=== PATIENT | female | born 1970 | race Caucasian/White ===

== ENCOUNTER 2016-08-14 17:38 | Emergency (ER) | payer MEDICAID ==
[~2016-08-14] VITALS: Wt 65.0 kg
[~2016-08-14 17:38] MED LIST: ALBU8.5H3 INH; ALBU8.5H5 IH; AUG875 PO; AZIT500T2 PO; IBUP400T22 PO; LORA-441 PO; LORA10CA PO; NITR-58 PO; PRED20TA PO
[2016-08-14] MEDS ORDERED: ALBUTEROL 0.083% (NEB) 2.5 MG/3 ML AMP HHN STA (18:07)
[2016-08-14] MEDS ORDERED: DEXAMETHASONE 10 MG/ML 1 ML INJ IM ONE (18:30)
[2016-08-14] MEDS ORDERED: IPRATROPIUM (NEB) 0.5 MG/2.5 ML AMP HHN ONE (18:30)
--- NOTE | 2016-08-14 19:09 | RADRPT ---
PROCEDURE: XR Chest. CLINICAL INDICATION: Shortness of breath. TECHNIQUE: Single frontal view. COMPARISON: 11/29/2015. FINDINGS: The lungs are clear. The heart size is normal. There is no pleural effusion. There is no pneumothorax. IMPRESSION: 1. Normal chest radiograph. RPTAT: QQ .Mayo Shepherd MD, MD Date Time Electronically viewed and signed by .Mayo Shepherd MD, MD on 08/14/2016 19:09 .R/
--- NOTE | 2016-08-14 19:11 | RADRPT ---
PROCEDURE: XR Thoracic Spine. CLINICAL INDICATION: Trauma. Back pain. TECHNIQUE: 3 views. Frontal, lateral, and lateral swimmers view. COMPARISON: None available FINDINGS: There is normal stature and alignment of the vertebrae. There is no fracture. There is no lytic or blastic lesion. The disk height is normal. The paravertebral soft tissues are unremarkable. Surgical clips are present in the right upper quad rant of the abdomen.. IMPRESSION: 1. Prior right upper quadrant abdomen surgery. 2. Otherwise unremarkable images of the thoracic spine. RPTAT: QQ .Mayo Shepherd MD, MD Date Time Electronically viewed and signed by .Mayo Shepherd MD, on 08/14/2016 19:11 .R/
[2016-08-14] MEDS ORDERED: PRED20TA PO (20:11)
[2016-08-14] MEDS ORDERED: ALBU8.5H3 INH (20:11)
--- NOTE | 2016-08-14 20:27 | ERD ---
ER Documentation Chief Complaint Date/Time DATE: 08/14/16 TIME: 20:21 Chief Complaint back pain, sob, anxious HPI This is a 46-year-old female presents to the ER presenting with shortness of breath that started yesterday. Over the last 2 days patient has had severe allergies with runny nose and sneezing. Patient states that it is difficult for her to take a deep breath in. Shortness of breath is present whenever she is walking or sitting down. She does admit to some chest pain. She also complains of upper back pain. She denies any trauma. She denies any recent travel, leg swelling or redness, recent surgery. Patient denies any fevers or chills. She does not have a family history of heart attacks or heart conditions at an early age. Patient states that her primary care doctor told her that this was anxiety. ROS 12 point review of systems was done, all negative except per HPI. Medications Home Meds Active Scripts Prednisone* (Prednisone*) 20 Mg Tab, 40 MG PO DAILY for 5 Days, TAB Prov:ARLETH CEE 08/14/16 Albuterol Sulfate* (Proair HFA*) 8.5 Gm Hfa.aer.ad, 2 PUFF INH Q4, #1 INHALER Prov:ARLETH CEE 08/14/16 Albuterol Sulfate* (Proair HFA*) 8.5 Gm Hfa.aer.ad, 2 PUFF INH Q4, #1 INHALER Prov:MCKINLEY JOINER PA-C 11/29/15 Nitrofurantoin Monohyd Macrocr* (Macrobid*) 100 Mg Capsr, 100 MG PO BID for 5 Days, CAP Prov:LANDON RUIZ NP 12/14/14 Prednisone* (Prednisone*) 20 Mg Tab, 60 MG PO DAILY for 5 Days Prov:MACIEL BURCH DO 11/08/14 Azithromycin* (Zithromax* Tri-Arnulfo) 500 Mg Tablet, 500 MG PO DAILY for 3 Days, TAB Prov:MACIEL BURCH DO 11/08/14 Albuterol Sulfate* (Albuterol Sulfate* HFA) 8.5 Gm Hfa.aer.ad, 2 PUFFS IH Q6 for WHEEZING, #2 EA Prov:MACIEL BURCH DO 11/08/14 Lorazepam* (Ativan*) 0.5 Mg Tablet, 0.5 MG PO Q8 Y for ANXIETY, #10 TAB Prov:MACIEL BURCH DO 11/08/14 Loratadine* (Claritin*) 10 Mg Capsule, 10 MG PO DAILY, #30 CAP Prov:BRENDAN PONCE STATION INSPECTOR 10/14/14 Albuterol Sulfate* (Albuterol Sulfate* HFA) 8.5 Gm Hfa.aer.ad, 2 PUFF IH Q4H Y for WHEEZING AND SOB, #1 EA Prov:BRENDAN PONCE STATION INSPECTOR 10/14/14 Reported Medications Amoxicillin-Clavulanate K* (Augmentin*) 875 Mg Tab, 875 MG PO BID, TAB 11/08/14 Ibuprofen* (Motrin*) 400 Mg Tab, 400 MG PO QID, TAB 11/08/14 Allergies Allergies: Coded Allergies: No Known Drug Allergy (Verified Allergy, Unknown, 11/08/14) PMhx/Soc History of Surgery: Yes ( X3 ) Anesthesia Reaction: No Hx Neurological Disorder: No Hx Respiratory Disorders: Yes (Asthma) Hx Cardiac Disorders: No Hx Psychiatric Problems: No Hx Miscellaneous Medical Probl: No Hx Alcohol Use: No Hx Substance Use: No Hx Tobacco Use: No Smoking Status: Never smoker Physical Exam Vitals Vital Signs Date Time Temp Pulse Resp B/P Pulse Ox O2 Delivery O2 Flow Rate FiO2 08/14/16 19:00 73 20 97 21 08/14/16 17:41 98.1 90 20 150/90 99 Physical Exam GENERAL: The patient is well developed and appropriate for usual state of health , in no apparent distress. HEENT: Atraumatic. Conjunctivae are pink. Pupils equal, round, and reactive to light. Extraocular muscles are grossly intact. Bilateral tympanic membranes are clear with no evidence of erythema, effusion or dulling of the light reflex. The oropharynx is clear with no erythema or exudates. CHEST: Expiratory wheezing in all lung arango. No rales crackles or rhonchi. HEART: Regular rate and rhythm. No murmurs, clicks, rubs or gallops. ABDOMEN: Soft, nontender and nondistended. Good bowel sounds. No rebound or guarding. No gross peritonitis. No gross organomegaly or masses. No Brannon sign or McBurney point tenderness. No pulsatile masses. BACK: No midline or flank tenderness. NEURO: Alert and oriented. SKIN: There is no apparent rash or petechia. The skin is warm and dry. Results 24 hrs Current Medications Medications (Trade) Dose Ordered Sig/Tara Route PRN Reason Start Time Stop Time Status Last Admin Dose Admin Albuterol (Proventil 0.083% (Neb)) 10 mg ONCE STAT HHN 08/14/16 18:07 08/14/16 18:10 DC 08/14/16 18:55 Ipratropium [place] (Atrovent 0.02% (Neb)) 0.5 mg ONCE ONCE HHN 08/14/16 18:30 08/14/16 18:31 DC 08/14/16 18:55 Dexamethasone (Decadron) 10 mg ONCE ONCE IM 08/14/16 18:30 08/14/16 18:31 DC 08/14/16 18:32 Procedures/MDM Differential diagnosis includes but is not limited to; STEMI, dissection, pneumothorax, PE, esophageal rupture, tamponade, pneumonia, pericarditis, GERD, musculoskeletal, endocarditis, anxiety, asthma. This is a 46-year-old female presents to the ER for shortness of breath. Patient did have significant wheezing on physical examination. Patient has a past medical history of allergic rhinitis. This is likely related. Patient states that over the last 2 days her allergies have been very bad. Was given an hour-long nebulizer treatment and that her shortness of breath was gone after the treatment. Upon reexamination her lungs and was includes. An EKG was done read by 75bpm no ST elevation or t wave inversions. Suspicion for pulmonary embolism is low, patient does not have any PERC criteria. Patient is afebrile and well- appearing. She is not hypoxic or in any respiratory distress. In regards to The patient's back pain is likely muscular in nature there is no evidence of fracture dislocation. Patient will be sent home with prednisone and with an albuterol inhaler. She was told to follow-up with her primary care doctor and to get tested for asthma. She was also told to get allergy testing and to see a specialist. Patient to return to ER sooner if symptoms worsen. My medical decision making shared with the patient she understands and agrees with plan. Departure Diagnosis: Primary Impression: Wheezing Condition: Stable Patient Instructions: Asthma Additional Instructions: Llame al doctor MAANA y thelma edgar ROBBIE PARA DENTRO DE 1-2 DANIEL.Dgale a la secretaria que nosotros le instruimos hacer esta robbie.Avise o llame si jackson condicin se empeora antes de la robbie. Regresa aqui si peor o no mejor. ARLETH CEE Aug 14, 2016 20:27
[2016-08-14 20:43] VITALS: BP 129/80; PULSE 99; RESP 16
== END 2016-08-14 20:44 | disposition home or self-care (01) ==
LOC: FTE 17:38
DX: J45.901 Unspecified asthma with (acute) exacerbation (principal); M54.9 Dorsalgia, unspecified; F41.9 Anxiety disorder, unspecified
CPT/HCPCS: 71010; 72072; 93005; 94644; 96372; J1100; Z7502; Z7610

== ENCOUNTER 2016-08-31 13:00 | Emergency (ER) | payer MEDICAID ==
[~2016-08-31] VITALS: Wt 67.0 kg
[2016-08-31] MEDS ORDERED: IBUP-1542 PO (13:25)
--- NOTE | 2016-08-31 13:29 | ERD ---
ER Documentation Chief Complaint Date/Time DATE: 08/31/16 TIME: 13:26 Chief Complaint PT HIT IN HEAD BY SOMTHING METAL, DENIES LOC HPI This patient is a 46-year-old female who states that early this morning she was working cleaning her house when a metal object fell onto her head. She did not lose consciousness. She has not had any nausea or vomiting. She denies any visual changes, photosensitivity, blurry, or double vision. She denies any dizziness. She states only has pain. Her pain was worse this morning but now states it is getting better and currently rates it as a throbbing nonradiating 5 out of 10. She has no neck pain. ROS All systems reviewed and are negative except as per history of present illness. Medications Home Meds Active Scripts Ibuprofen* (Motrin*) 600 Mg Tab, 600 MG PO Q6, #30 TAB Prov:MCKINLEY JOINER PA-C 08/31/16 Prednisone* (Prednisone*) 20 Mg Tab, 40 MG PO DAILY for 5 Days, TAB Prov:ARLETH CEE 08/14/16 Albuterol Sulfate* (Proair HFA*) 8.5 Gm Hfa.aer.ad, 2 PUFF INH Q4, #1 INHALER Prov:ARLETH CEE 08/14/16 Albuterol Sulfate* (Proair HFA*) 8.5 Gm Hfa.aer.ad, 2 PUFF INH Q4, #1 INHALER Prov:MCKINLEY JOINER PA-C 11/29/15 Nitrofurantoin Monohyd Macrocr* (Macrobid*) 100 Mg Capsr, 100 MG PO BID for 5 Days, CAP Prov:LANDON RUIZ [employer] PRESS OPERATOR 12/14/14 Prednisone* (Prednisone*) 20 Mg Tab, 60 MG PO DAILY for 5 Days Prov:MACIEL BURCH DO 11/08/14 Azithromycin* (Zithromax* Tri-Arnulfo) 500 Mg Tablet, 500 MG PO DAILY for 3 Days, TAB Prov:MACIEL BURCH DO 11/08/14 Albuterol Sulfate* (Albuterol Sulfate* HFA) 8.5 Gm Hfa.aer.ad, 2 PUFFS IH Q6 for WHEEZING, #2 EA Prov:MACIEL BURCH DO 11/08/14 Lorazepam* (Ativan*) 0.5 Mg Tablet, 0.5 MG PO Q8 Y for ANXIETY, #10 TAB Prov:MACIEL BURCH DO 11/08/14 Loratadine* (Claritin*) 10 Mg Capsule, 10 MG PO DAILY, #30 CAP Prov:BRENDAN PONCE H[employer] PRESS OPERATOR 10/14/14 Albuterol Sulfate* (Albuterol Sulfate* HFA) 8.5 Gm Hfa.aer.ad, 2 PUFF IH Q4H Y for WHEEZING AND SOB, #1 EA Prov:BRENDAN PONCE H[employer]ATE [employer] PRESS OPERATOR 10/14/14 Reported Medications Amoxicillin-Clavulanate K* (Augmentin*) 875 Mg Tab, 875 MG PO BID, TAB 11/08/14 Ibuprofen* (Motrin*) 400 Mg Tab, 400 MG PO QID, TAB 11/08/14 Allergies Allergies: Coded Allergies: No Known Drug Allergy (Verified Allergy, Unknown, 11/08/14) PMhx/Soc History of Surgery: Yes ( X3 ) Anesthesia Reaction: No Hx Neurological Disorder: No Hx Respiratory Disorders: Yes (Asthma) Hx Cardiac Disorders: No Hx Psychiatric Problems: No Hx Miscellaneous Medical Probl: No Hx Alcohol Use: No Hx Substance Use: No Hx Tobacco Use: No FmHx Family History: No diabetes Physical Exam Vitals Vital Signs Date Time Temp Pulse Resp B/P Pulse Ox O2 Delivery O2 Flow Rate FiO2 08/31/16 13:04 98.3 84 20 138/92 97 Physical Exam General: well developed, well nourished, alert, nontoxic, no distress Head: normocephalic, atraumatic Eyes: PERRL, normal conjunctiva Neck: Supple, nontender, no lymphadenopathy, no midline tenderness Respiratory: Clear to auscaultation bilaterally, speaks in full sentences, no use of accesory muscles or labored breathing, no rales, ronchi, or wheezing Cardiovascular: RRR, No murmurs Back: no midline tenderness, no step offs or bony abnormalities, sensation to light touch in tact Extremities: moving all extremities normally, normal gait, no edema Skin: no visible rashes or cuts Neuro: CN 2-12 intact, normal speech, phone manager strength 5/5 bilaterally, rapid alternating movements wnl, romberg and pronator drift wnl Procedures/MDM 46-year-old female presents after an acute head injury that occurred today. Her vital signs are normal she is well-appearing in no distress. She did not have any loss of consciousness. She has no visual changes, nausea, vomiting, dizziness. Furthermore she states her pain is improving. Her neurological examination is completely normal she is well-appearing and not ill-appearing in examination room in no distress. I explained the risks and benefits of CT scan and we decided not to CT scan at this time however I did give the patient very restrictive return precautions regarding head injuries including increased pain , nausea, vomiting, dizziness, difficulty walking or balancing, or any other concern. Patient understands that if any of these symptoms happen she should return to the emergency room immediately. Patient was discharged with ibuprofen. Recommended this patient follow up with her primary care doctor within 48 hours or return to the emergency room for any worsening of symptoms. However this time I do believe there is suitable for outpatient management. I answered all their questions and they agreed with the plan and were discharged home. Departure Diagnosis: Primary Impression: Head injury Condition: Stable Patient Instructions: HEAD INJURY with Wake-Up (Adult) Additional Instructions: Llame al doctor PAULETTE y thelma edgar ROBBIE PARA DENTRO DE 1-2 DANIEL.Dgale a la secretaria que nosotros le instruimos hacer esta robbie.Avise o llame si jackson condicin se empeora antes de la robbie. Regresa aqui si peor o no mejor. MCKINLEY JOINER PA-C Aug 31, 2016 13:29
== END 2016-08-31 13:36 | disposition home or self-care (01) ==
LOC: FTE 13:00
DX: S09.90XA Unspecified injury of head, initial encounter (principal); J45.909 Unspecified asthma, uncomplicated; W20.8XXA Other cause of strike by thrown, projected or falling object, initial encounter; Y92.009 Unspecified place in unspecified non-institutional (private) residence as the place of occurrence of the external cause

== ENCOUNTER 2017-12-30 08:52 | Emergency (ER) | END 2017-12-30 09:50 | disposition home or self-care (01) ==